=== PATIENT | female | born 1980 | race African-American/Black ===

== ENCOUNTER 2019-06-06 17:36 | Emergency (ER) | payer MEDICARE, OTHER ==
[~2019-06-06] VITALS: Ht 177.8 cm; Wt 99.8 kg
--- NOTE | 2019-06-06 18:00 | NUR ---
PATIENT WAS MSE BY DR SARAVIA IN ROOM 04B.
--- NOTE | 2019-06-06 18:12 | NUR ---
Patient discharged to home in stable conditon. Written and verbal after care instructions given. Patient verbalizes understanding of instructions.
[2019-06-06 18:15] VITALS: BP 120/88
== END 2019-06-06 18:19 | disposition home or self-care (01) ==
LOC: ER 17:41
DX: G47.00 Insomnia, unspecified (principal); F32.9 Major depressive disorder, single episode, unspecified; Z76.0 Encounter for issue of repeat prescription; Z88.5 Allergy status to narcotic agent
CPT/HCPCS: A4663

== ENCOUNTER 2019-09-01 19:04 | Emergency (ER) | payer MEDICARE, OTHER ==
[~2019-09-01] VITALS: Ht 177.8 cm; Wt 106.6 kg
--- NOTE | 2019-09-01 19:34 | NUR ---
Patient discharged to home in stable conditon. Written and verbal after care instructions given. Patient verbalizes understanding of instructions.
== END 2019-09-01 19:35 | disposition home or self-care (01) ==
LOC: ER 19:06
DX: G47.00 Insomnia, unspecified (principal); F32.9 Major depressive disorder, single episode, unspecified; Z76.0 Encounter for issue of repeat prescription; Z88.5 Allergy status to narcotic agent
CPT/HCPCS: A4663

== ENCOUNTER 2020-06-03 22:57 | Emergency (ER) | payer MEDICARE, OTHER ==
[~2020-06-03] VITALS: Ht 177.8 cm; Wt 104.3 kg
[2020-06-03] MEDS ORDERED: [UNRECOGNIZED DRUG - REMARK] (23:10)
[2020-06-03] MEDS ORDERED: ZOLP10TA2 PO (23:10)
[2020-06-03] MEDS ORDERED: [UNRECOGNIZED DRUG - REMARK] (23:10)
[2020-06-03] MEDS ORDERED: [UNRECOGNIZED DRUG - REMARK] (23:10)
--- NOTE | 2020-06-03 23:14 | NUR ---
at bedside for MSE
[2020-06-03 23:22] VITALS: BP 150/81
--- NOTE | 2020-06-03 23:22 | NUR ---
Patient discharged to home in stable condition. Given RX. Written and verbal after care instructions given. Patient verbalizes understanding of instructions. Stressed follow up or return to ER for worsening s/s.
== END 2020-06-03 23:25 | disposition home or self-care (01) ==
LOC: ER 23:01
DX: Z76.0 Encounter for issue of repeat prescription (principal); G47.00 Insomnia, unspecified; R03.0 Elevated blood-pressure reading, without diagnosis of hypertension; F31.9 Bipolar disorder, unspecified
CPT/HCPCS: A4663